=== PATIENT | male | born 1965 | race Caucasian/White ===

== ENCOUNTER 2017-08-24 13:10 | Emergency (ER) | payer MEDICARE ==
[~2017-08-24] VITALS: Ht 182.9 cm; Wt 114.1 kg
[~2017-08-24 13:10] MED LIST: DIAZ5TAB PO; GABA300C10 PO; HYDR-2442 PO; LITH300C PO; OMEP-110 PO
[2017-08-24 13:24] VITALS: BP 139/90
[2017-08-24] MEDS ORDERED: KETOROLAC 30 MG/1 ML IM ONE (14:30)
[2017-08-24] MEDS ORDERED: KETOROLAC 30 MG/1 ML ONE (15:05)
== END 2017-08-24 16:10 | disposition home or self-care (01) ==
LOC: ED 16:00
DX: S39.012A Strain of muscle, fascia and tendon of lower back, initial encounter (principal); F31.9 Bipolar disorder, unspecified; M51.34 Other intervertebral disc degeneration, thoracic region; M51.16 Intervertebral disc disorders with radiculopathy, lumbar region; X50.1XXA Overexertion from prolonged static or awkward postures, initial encounter; Y93.9 Activity, unspecified; Y99.8 Other external cause status; Y92.89 Other specified places as the place of occurrence of the external cause
CPT/HCPCS: 72110; 96372; 99284; J1885

== ENCOUNTER 2020-01-22 20:56 | Emergency (ER) | payer MEDICARE ==
[~2020-01-22] VITALS: Ht 182.9 cm; Wt 115.0 kg
[2020-01-22 20:59] VITALS: BP 123/89
--- NOTE | 2020-01-22 21:19 | NUR ---
AT 2PM THIS PT WAS STEPPING UP ON THE CURB AND MISSED, FEELING A POP. PT COMPLAINS OF PAIN, LEFT ANKLE SWOLLEN. CMS INTACT, DORSAL-PEDAL PULSE 2+. PT SITTING IN BED WITH FOOT ELEVATED, AND ICE PACK APPLIED. CALL LIGHT IN REACH, NO SIGNS OF ACUTE DISTRESS. WILL CONTINUE TO MONITOR.
== END 2020-01-22 22:20 | disposition home or self-care (01) ==
LOC: ED 21:43
DX: S93.432A Sprain of tibiofibular ligament of left ankle, initial encounter (principal); X50.0XXA Overexertion from strenuous movement or load, initial encounter; Y93.89 Activity, other specified; Y92.410 Unspecified street and highway as the place of occurrence of the external cause; Y99.8 Other external cause status
CPT/HCPCS: 99283

== ENCOUNTER 2020-11-25 20:46 | Emergency (ER) | payer MEDICARE ==
[~2020-11-25] VITALS: Ht 182.9 cm; Wt 120.0 kg
[~2020-11-25 20:46] MED LIST changes: -HYDR-2442 PO; +HYDR-3565 PO
--- NOTE | 2020-11-25 20:55 | NUR ---
ASSESSMENT MADE. CHART UP FOR MD TO SEE. C/O THROAT DISCOMFORT AFTER EATING STEAK. AIRWAY INTACT. NO STRIDOR.
[2020-11-25] MEDS ORDERED: GLUCAGON 1 MG ONE (21:22)
[2020-11-25] MEDS ORDERED: GLUCAGON 1 MG IVPush ONE (21:30)
--- NOTE | 2020-11-25 22:09 | NUR ---
PATIENT ABLE TO SWALLOW WATER. NO VOMITING/ DROOLING NOTED. STATES FEELS THERE IS A SMALL BUMP ON HIS THROAT. MD AWARE.
--- NOTE | 2020-11-25 22:20 | NUR ---
PO CHALLENGE PASSED. AWARE.
--- NOTE | 2020-11-25 23:01 | NUR ---
RE-EVALUATION DONE. PATIENT DISCHARGED WITH PRESCRIPTION AND INSTRUCTION. VERBALIZED UNDERSTANDING.
[2020-11-25 23:02] VITALS: BP 115/70
== END 2020-11-25 23:05 | disposition home or self-care (01) ==
LOC: ED 21:40
DX: T18.128A Food in esophagus causing other injury, initial encounter (principal); F17.210 Nicotine dependence, cigarettes, uncomplicated; Z90.49 Acquired absence of other specified parts of digestive tract; X58.XXXA Exposure to other specified factors, initial encounter; Y93.89 Activity, other specified; Y92.89 Other specified places as the place of occurrence of the external cause; Y99.8 Other external cause status
CPT/HCPCS: 96374; 99283; 99406; J1610